=== PATIENT | female | born 1995 | race Caucasian/White ===

== ENCOUNTER 2017-10-31 21:00 | Emergency (ER) | payer OTHER ==
[~2017-10-31] VITALS: Ht 170.2 cm; Wt 70.4 kg
[2017-10-31 21:56] LABS: MEAN CORPUSCULAR HEMOGLOBIN 29.2 pg (27.0-34.8); MEAN CORPUSCULAR HGB CONC 34.2 g/dL (32.4-35.8); MEAN CORPUSCULAR VOLUME 85.5 fL (80-100); MEAN PLATELET VOLUME 8.9 fL (7.4-10.4); PLATELET COUNT 176 x10^3/uL (130-400); RED BLOOD COUNT 4.81 x10^6/uL (3.82-5.3); RED CELL DISTRIBUTION WIDTH 13.8 % (9.6-15.2)
[2017-10-31] MEDS ORDERED: FAMOTIDINE 20 MG/2 ML IVP ONE (22:00)
[2017-10-31] MEDS ORDERED: SODIUM CHLORIDE 0.9% 1,000ML IVBOLUS ONE (22:00)
[2017-10-31] MEDS ORDERED: SODIUM CHLORIDE FLUSH 10ML SYR IVF ONE (22:00)
[2017-10-31] MEDS ORDERED: MAALOX/HYOSCYAMINE/LIDOCAINE 45 ML BTL PO ONE (22:00)
[2017-10-31] MEDS ORDERED: ONDANSETRON 2MG/ML, 2ML IVPush ONE (22:00)
[2017-10-31] MEDS ORDERED: MAALOX/HYOSCYAMINE/LIDOCAINE 45 ML BTL ONE (22:01)
[2017-10-31] MEDS ORDERED: FAMOTIDINE 20 MG/2 ML ONE (22:01)
[2017-10-31] MEDS ORDERED: ONDANSETRON 2MG/ML, 2ML ONE (22:01)
[2017-10-31 22:09] LABS: ALANINE AMINOTRANSFERASE 15 U/L (12-78); ANION GAP 10 mmol/L (5-15); CALCIUM 8.8 mg/dL (8.5-10.1); CHLORIDE 105 mmol/L (98-107); CREATININE 0.88 mg/dL (0.55-1.02)
[2017-10-31 22:13] LABS: ALKALINE PHOSPHATASE 61 U/L (45-117); BILIRUBIN,TOTAL 1.1 mg/dL (0.2-1.0); TOTAL PROTEIN 7.9 g/dL (6.4-8.2)
[2017-10-31 22:17] LABS: BASOPHILS # (AUTO) 0.02 x10^3/uL (0-0.1); BASOPHILS % (AUTO) 0 % (0-1); EOSINOPHILS % (AUTO) 0 % (1-7); LYMPHOCYTES # (AUTO) 0.53 x10^3/uL (1-3.4); LYMPHOCYTES % (AUTO) 3 % (22-44); MD SCAN; MONOCYTES # (AUTO) 1.05 x10^3/uL (0.2-0.8); MONOCYTES % (AUTO) 7 % (2-9); NEUTROPHILS # (AUTO) 13.93 x10^3/uL (1.8-6.8); NEUTROPHILS % (AUTO) 90 % (42-75)
[2017-10-31 22:28] LABS: OCCULT BLOOD POSITIVE (NEGATIVE)
[2017-10-31] MEDS ORDERED: ACETAMINOPHEN 325 MG TABLET PO ONE (22:30)
[2017-10-31] MEDS ORDERED: ACETAMINOPHEN 325 MG TABLET ONE (22:32)
[2017-10-31 22:54] LABS: MICROSCOPIC NOT IND
[2017-10-31 22:58] LABS: CULTURE INDICATED? NO
[2017-10-31 23:47] VITALS: BP 115/72
== END 2017-10-31 23:50 | disposition home or self-care (01) ==
LOC: ED 23:44
DX: R19.7 Diarrhea, unspecified (principal); R11.2 Nausea with vomiting, unspecified
CPT/HCPCS: 36415; 80053; 81003; 82272; 83690; 84703; 85025; 86677; 87046; 87252; 87899; 89055; 96361; 96374; 96375; 99284; J2405; J7030; S0028